=== PATIENT | male | born 1980 | race Native Hawaiian/Other Pacific Islander ===

== ENCOUNTER 2016-11-10 12:17 | Emergency (ER) | payer BC ==
[~2016-11-10] VITALS: Ht 167.6 cm; Wt 83.9 kg
[~2016-11-10 12:17] MED LIST: ATEN50TA36 PO; HYDR25TA60 PO; LISI20TA11 PO; LOSA50TA PO; RANI150T78 PO
[2016-11-10 12:25] VITALS: TEMP 97.5
[2016-11-10] MEDS ORDERED: KETO10TA34 PO (13:47)
[2016-11-10 13:52] VITALS: BP 148/89
== END 2016-11-10 13:52 | disposition home or self-care (01) ==
LOC: ED 12:17
PROC: 2W3CX1Z Immobilization of Right Lower Arm using Splint (ICD-10-PCS; principal; 2016-11-10)
DX: S62.366A Nondisplaced fracture of neck of fifth metacarpal bone, right hand, initial encounter for closed fracture (principal); W22.09XA Striking against other stationary object, initial encounter; Y92.098 Other place in other non-institutional residence as the place of occurrence of the external cause
CPT/HCPCS: 96372; 99283; J1885; L3908

== ENCOUNTER 2018-10-01 08:18 | Outpatient (CLI) | payer OTHER ==
[~2018-10-01 08:18] MED LIST changes: +KETO10TA34 PO
== END 2018-10-01 19:38 | disposition home or self-care (01) ==
LOC: MRI 08:18 → CT 09:00 → MRI 19:38
DX: R26.81 Unsteadiness on feet (principal); Z91.81 History of falling; R29.6 Repeated falls

== ENCOUNTER 2018-11-29 09:19 | Outpatient (CLI) | payer OTHER ==
[2018-11-29 09:54] LABS: PLATELET COUNT 409 K/uL (142-355)
== END 2018-11-29 21:41 | disposition home or self-care (01) ==
LOC: LABW 09:19
PROVIDERS: Internal Medicine
DX: R53.83 Other fatigue (principal); E53.8 Deficiency of other specified B group vitamins; D64.9 Anemia, unspecified
CPT/HCPCS: 36415; 82607; 82746; 82747; 84403; 84443; 85027

== ENCOUNTER 2019-03-01 11:14 | Outpatient (CLI) | payer OTHER | END 2019-03-01 23:40 | disposition home or self-care (01) | LOC: LABW 11:14 | DX: E53.8 Deficiency of other specified B group vitamins (principal) | CPT/HCPCS: 36415; 82607 ==

== ENCOUNTER 2020-10-21 10:20 | Outpatient (CLI) | payer OTHER ==
[2020-10-21 11:07] LABS: POTASSIUM 3.9 mmol/L (3.6-5.2)
== END 2020-10-21 21:08 | disposition home or self-care (01) ==
LOC: LABW 10:20
PROVIDERS: ATTEND Internal Medicine Cardiovascular Disease
DX: Z79.899 Other long term (current) drug therapy (principal)
CPT/HCPCS: 36415; 80048

== ENCOUNTER 2020-10-28 09:37 | Outpatient (CLI) | payer OTHER | END 2020-10-28 19:53 | disposition home or self-care (01) | LOC: US 09:37 | PROVIDERS: ATTEND Internal Medicine | DX: I10 Essential (primary) hypertension (principal); E11.40 Type 2 diabetes mellitus with diabetic neuropathy, unspecified; R53.83 Other fatigue | CPT/HCPCS: 36415; 82024; 82088; 82533; 82607; 82728; 82746; 83036; 83540; 83550; 83835; 84244; 84436; 84439; 84443 ==

== ENCOUNTER 2020-10-30 08:11 | Outpatient (CLI) | payer OTHER | END 2020-10-30 21:35 | disposition home or self-care (01) | LOC: US 08:11 | PROVIDERS: ATTEND Internal Medicine | DX: I10 Essential (primary) hypertension (principal) | CPT/HCPCS: 93975 ==

== ENCOUNTER 2020-12-08 08:50 | Outpatient (CLI) | payer OTHER | END 2020-12-08 20:59 | disposition home or self-care (01) | LOC: MRI 08:50 | PROVIDERS: ATTEND Internal Medicine | DX: M54.10 Radiculopathy, site unspecified (principal); M51.9 Unspecified thoracic, thoracolumbar and lumbosacral intervertebral disc disorder; M54.89 Other dorsalgia ==

== ENCOUNTER 2021-03-08 10:10 | Outpatient (CLI) | payer OTHER ==
[2021-03-08 11:04] LABS: PLATELET COUNT 333 K/uL (142-355)
[2021-03-08 11:08] LABS: POTASSIUM 4.2 mmol/L (3.6-5.2)
== END 2021-03-08 19:31 | disposition home or self-care (01) ==
LOC: LABW 10:10
PROVIDERS: ATTEND Internal Medicine
DX: Z01.812 Encounter for preprocedural laboratory examination (principal); E11.9 Type 2 diabetes mellitus without complications
CPT/HCPCS: 36415; 80048; 83036; 85027

== ENCOUNTER 2021-07-08 13:40 | Outpatient (CLI) | payer OTHER | END 2021-07-08 19:23 | disposition home or self-care (01) | LOC: INF 13:40 | PROVIDERS: ATTEND Internal Medicine | DX: Z23 Encounter for immunization (principal) | CPT/HCPCS: 0002A ==

== ENCOUNTER 2023-03-07 13:33 | Outpatient (CLI) | payer OTHER | END 2023-03-07 19:16 | disposition home or self-care (01) | LOC: MRI 13:33 | PROVIDERS: ATTEND Internal Medicine Endocrinology, Diabetes & Metabolism | DX: G89.29 Other chronic pain (principal); M54.12 Radiculopathy, cervical region; M51.9 Unspecified thoracic, thoracolumbar and lumbosacral intervertebral disc disorder; S14.109S Unspecified injury at unspecified level of cervical spinal cord, sequela; M54.10 Radiculopathy, site unspecified; Y92.89 Other specified places as the place of occurrence of the external cause ==